=== PATIENT | female | born 1980 | race African-American/Black ===

== ENCOUNTER 2019-12-16 14:36 | Emergency (ER) | payer MEDICAID, SELFPAY ==
[2019-12-16 15:43] VITALS: BP 132/90; PULSE 87; RESP 18; TEMP 36.8; O2SAT 96
[2019-12-16] MEDS: FAMOTIDINE 20 MG/2 ML VIAL IV PUSH (18:00)
--- NOTE | 2019-12-16 18:07 | ED.URI ---
HPI - URI/Sore Throat General Chief Complaint: Upper Respiratory Infection Stated Complaint: flu like symptoms Time Seen by Provider: 12/16/19 17:26 Source: patient Mode of arrival: ambulatory Limitations: no limitations History of Present Illness HPI Narrative: Patient is a 39-year-old female who presents to emergency department for evaluation of upper respiratory symptoms that began yesterday with congestion rhinorrhea body aches has had a few loose stools and one episode of post tussive emesis patient notes some headache that is mild in nature denies any difficulty breathing or shortness of breath. Patient has tried [id number] medications with minimal improvement on arrival is resting comfortably in the room in no distress Related Data Allergies Allergy/AdvReac Type Severity Reaction Status Date / Time No Known Allergies Allergy Unverified 07/19/16 11:40 Review of Systems Review of Systems: Narrative: CONSTITUTIONAL: Positive for fever, chills EYES: Denies redness, or discharge. ENT: Positive for rhinorrhea, congestion, sore throat, denies otalgia. RESPIRATORY: Denies dyspnea. GASTROINTESTINAL: Denies abdominal pain SKIN: Denies rash or itching. MUSCULOSKELETAL: Denies back pain, joint pain, or myalgia. PMFSH Social History Social History Gender identity (if verbalized by the patient): Female Exam Narrative: Exam Narrative: GENERAL: Well-appearing, well-nourished, and in no acute distress. HEAD: Normocephalic, atraumatic. EYES: PERRLA and EOMI. ENT: Nares clear, no rhinorrhea or epistaxis. Mucous membranes moist. Oropharynx without tonsillar hypertrophy exudate or other lesions. NECK: Supple. No adenopathy or masses. CHEST: Clear to auscultation. No respiratory distress. No wheezes rales or rhonchi HEART: Regular rate and rhythm. No murmur heard. EXTREMITIES: Normal range of motion. No edema. SKIN: Warm, dry, no rash. NEURO: No focal deficits. Alert and oriented x3. Cranial nerves II through XII grossly intact PSYCH: Normal mood and affect. Course Course Emergency Course: Patient in the room in no distress aware of case findings treatment plan and diagnosis agreeing to follow-up as directed or to return if symptoms worsen or concerns Vital Signs Vital signs: Vital Signs Temperature 98.3 F 12/16/19 15:43 Pulse Rate 87 12/16/19 15:43 Respiratory Rate 18 12/16/19 15:43 Blood Pressure 132/90 12/16/19 15:43 Pulse Oximetry 96 12/16/19 15:43 Temperature 98.3 F 12/16/19 15:43 Pulse Rate 87 12/16/19 15:43 Respiratory Rate 18 12/16/19 15:43 Blood Pressure 132/90 12/16/19 15:43 Pulse Oximetry 96 12/16/19 15:43 MDM - URI/Sore Throat MDM Narrative Medical decision making narrative: Patient with likely viral syndrome in the room afebrile nontoxic-appearing no distress felt appropriate for outpatient reevaluation was hydrated and given medications in the emergency department provided with reasons to return and agrees to do so if symptoms worsen Lab Data Labs: Influenza A Screen Negative Reference Range: Negative Influenza B Screen Negative Reference Range: Negative Discharge Plan Discharge Clinical Impression: Upper respiratory infection Patient Disposition: Home, Self-Care Condition: Stable Instructions: Antibiotic Form, Viral Syndrome (ED) Additional Instructions: Follow up with your primary care provider within 5-7 days. Go to ER for shortness of breath, difficulty breathing, chest pain, fever/chills, weakness, nauseau/vomitting, etc. or any other concerns. Stay well-hydrated Take any prescribed medications as directed. Follow patient education sheets If you do not have a drug allergy to tylenol or motrin and can tolerate it then take tylenol or motrin as needed for discomfort/pain. Prescriptions: New loratadine [Claritin] 10 mg tablet
[2019-12-16 18:30] VITALS: RESP 16
--- NOTE | 2019-12-19 08:54 | PC.NURSE ---
LATE ENTRY This note is being entered to document information to the patient's record. The following information was omitted on [12/18/19]. offirmev discontinued at 1821.
== END 2019-12-16 18:30 | disposition home or self-care (01) ==
PROVIDERS: Emergency Provider Emergency Medicine
DX: J06.9 Acute upper respiratory infection, unspecified (principal)
CPT/HCPCS: 87804; 96365; 96375; 99284; J0131

== ENCOUNTER 2020-04-23 15:52 | Emergency (ER) | payer SELFPAY ==
--- NOTE | ~2020-04-23 | XR_ITS ---
EXAMINATION: XR abdomen/kub 1V DATE: 04/23/2020 18:45 INDICATION: Left flank pain. TECHNIQUE: A supine view of the abdomen on 2 radiographs was obtained. COMPARISON: CT abdomen and pelvis 04/23/2020 FINDINGS: There are no dilated loops of bowel. There is no urolithiasis. IMPRESSION: 1. No urolithiasis. Reviewed, dictated and finalized at location A. IMPRESSION: 1. No urolithiasis.
--- NOTE | ~2020-04-23 | CT_ITS ---
EXAMINATION: CT abdomen pelvis wo con DATE: 04/23/2020 18:15 INDICATION: Right abdominal pain. TECHNIQUE: Computed tomography (CT) of the abdomen and pelvis was performed without intravenous contr ast. Automated exposure control and iterative reconstruction technique were employed. The dose-length product was 1525.64 mGy-cm. COMPARISON: None. FINDINGS: The visualized portions of the lung bases are clear without pneumonia or pleural effusion. The heart size is normal. No pericardial effusion. The liver, gallbladder, spleen, pancreas, adrenal glands, and kidneys are normal. There is no urolithiasis. There is diverticulosis of the colon withou t evidence of diverticulitis. There are no dilated loops of bowel. The appendix is normal. There are no pathologically enlarged lymph nodes. There is no free intraperitoneal fluid. There are uterine fib roids measuring up to at least 5.0 cm. There is mild thoracolumbar spondylosis. IMPRESSION: 1. Uterine fibroids. Reviewed, dictated and finalized at location A. IMPRESSION: 1. Uterine fibroids.
[2020-04-23 15:53] VITALS: BP 151/103; PULSE 107; RESP 16; O2SAT 100
--- NOTE | 2020-04-23 16:37 | ED.GENADULT ---
HPI - General Adult General Chief complaint: Abdominal Pain Stated complaint: ABD/BACK PAIN Time Seen by Provider: 04/23/20 16:36 Source: patient Mode of arrival: ambulatory Limitations: no limitations History of Present Illness HPI narrative: 39-year-old female patient presents to the [facility] with complaints of low back and abdominal pain that started today after work. Patient states that she works at [employer] and has been on her feet most of the day today. Patient states she went to go and sit down in her car and states that she had a ball of pain that started in her abdomen and radiates to her back. Patient states that the pain gets worse when she is in a sitting position but is better when she stands or lays on her side. Patient denies any pain with urination. Patient states her last bowel movement was this morning. Patient denies any chest pain, shortness of breath. Patient denies any fevers. Patient denies any injury to the back that she is aware of. Related Data Allergies Allergy/AdvReac Type Severity Reaction Status Date / Time No Known Allergies Allergy Unverified 07/19/16 11:40 Review of Systems Review of Systems: Narrative: CONSTITUTIONAL: Denies fever, chills, or sweats. EYES: Denies visual changes, redness, or discharge. ENT: Denies rhinorrhea, congestion, sore throat, or otalgia. CARDIOVASCULAR: Denies chest pain, palpitations, or edema. RESPIRATORY: Denies cough or dyspnea. GASTROINTESTINAL: Positive abdominal pain, denies nausea, vomiting, or diarrhea. GENITOURINARY: Denies dysuria or hematuria. SKIN: Denies rash or itching. MUSCULOSKELETAL: Positive low back pain, denies joint pain, or myalgia. NEUROLOGIC: Denies headache, numbness, or weakness. PSYCHIATRIC: Denies anxiety or depression. PMFSH Social History Social History Gender identity (if verbalized by the patient): Female Comments At the time of my signature I agree with nursing past medical history, surgical, social, and family history. There is no relevant family history pertinent to the presenting complaint. Exam Narrative: Exam Narrative: GENERAL: Well-appearing, well-nourished, and in no acute distress. HEAD: Normocephalic, atraumatic. EYES: PERRLA and EOMI. ENT: Nares clear, no rhinorrhea or epistaxis. Mucous membranes moist. NECK: Supple. No lymphadenopathy CHEST: Clear to auscultation. No respiratory distress. HEART: Regular rate and rhythm. No murmur heard. Normal peripheral pulses. ABDOMEN: Soft, flat, nondistended. No guarding, rebound tenderness, or rigid. No pulsatilla masses. Hyperactive bowel sounds present in all four quadrants. No organomegaly. Negative Montanez?s sign. No periumbicial tenderness. No Supra public tenderness or distension. Good femoral pulses bilaterally. No hernia noted. No scars or surface trauma. Left-sided CVA tenderness on percussion. BACK: Patient is able to ambulated without assistance. Pt is lying on the stretcher in no obvouis distress. No surface trauma noted. No muscle tenderness to Palpation. No spasm or mass. No step-offs or deformity noted to the cervical, thoracic or lumbar spine to firm Palpation at the midline. Left-sided CVA tenderness to percussion. No saddle anesthesia. ROM: able to stand erect. Normal flexion, extension, Lateral bending and rotation without limitation or complaint of pain. EXTREMITIES: Normal range of motion. No edema. SKIN: Warm, dry, no rash. NEURO: No focal deficits. Alert and oriented x3. Course Reevaluation(s) Reevaluation #1: Reevaluated patient after her labs and CT had resulted. Discussed with her that her CT shows some uterine fibroids but everything else looks okay. Discussed with her that her labs look like she might be a little bit dehydrated. Discussed with patient that the uterine fibroids would contribute to the abdominal and back pain that she is experiencing. Patient states that she is on the last day of he
--- NOTE | 2020-04-23 16:44 | ECG_ITS ---
Measurements Intervals [place] Rate: 81 P: 56 [place]: 176 QRS: 39 QRSD: 90 T: 38 QT: 385 QTc: 448 Interpretive Statements SINUS RHYTHM BASELINE ARTIFACT- V1 NORMAL ECG Electronically Signed On 04-23-2020 17:33:00 CDT by Jose Manuel Mosqueda D.O.
[2020-04-23 17:02] LABS: Basophils Absolute Auto 0.1 K/mm3 (0.0-0.1); Eosinophils Absolute Auto 0.1 K/mm3 (0-0.3); Eosinophils Percent Auto 1.1 % (0-4.4); Hematocrit 33.6 % (37.0-47.0); Hemoglobin 10.4 g/dL (12.0-15.0); Immature Granulocyte Absolute 0.02 K/mm3 (0.00-0.031); Immature Granulocyte Percent A 0.3 % (0-0.5); Lymphocytes Absolute Auto 2.51 K/mm3 (0.9-3.2); Lymphocytes Percent Auto 40.7 % (18.3-44.2); Mean Corpuscular Hemoglobin 24.3 pg (26-34); Mean Corpuscular Volume 78.5 fl (80-100); Mean Platelet Volume 9.2 fl (7.4-10.4); Monocytes Absolute Auto 0.5 K/mm3 (0.1-0.6); Monocytes Percent Auto 8.3 % (2.6-8.5); Neutrophils Percent Auto 48.6 % (45.5-73.1); Platelet Count Result 406 k/mm3 (150-375); Red Blood Count 4.28 M/mm3 (4.2-5.4); Red Cell Distribution Width 18.3 % (11.5-14.5); White Blood Count 6.2 K/mm3 (4.5-10.0)
[2020-04-23] MEDS: KETOROLAC 30 MG/ML VIAL (*BKC) IV PUSH (17:09)
[2020-04-23 17:14] LABS: Alanine Aminotransferase 15 U/L (4-35); Albumin Level 4.3 g/dL (3.5-5.1); Alkaline Phosphatase 88 U/L (38-126); Aspartate Amino Transferase 26 U/L (14-36); Bilirubin,Total < 0.1 mg/dL (0.2-1.3); Blood Urea Nitrogen 10 mg/dL (7-17); Calcium 8.8 mg/dL (8.4-10.2); Carbon Dioxide 27 mmol/L (22-30); Chloride 105 mmol/L (98-107); Estimated CRCL calculation 128 ml/min; Estimated Glomerular Filt Rate > 60; Glucose 103 mg/dL (65-105); Lipase 116 U/L (23-300); Potassium 3.8 mmol/L (3.4-5.0); Sodium 136 mmol/L (137-145)
[2020-04-23 17:25] LABS: Troponin I < 0.012 ng/mL (0.000-0.034)
[2020-04-23 18:15] LABS: Add Urine Microscopic? YES; Appearance Urine Clear (Clear); Bilirubin Urine Negative (Negative); Blood Urine 3+ (Negative); Color Urine Yellow (Yellow); Glucose Urine UA Negative (Negative); Ketones Urine Negative (Negative); Leukocyte Esterase Ur Negative LEU/UL (Negative); Mucus Urine Few /lpf; Nitrate Urine Negative (Negative); Protein Urine 1+ mg/dL (Negative); RBC Urine >75 /hpf (0-2); Specific Grav Ur 1.028 (1.001-1.035); Squamous Epithelial Cell Urine Occasional /hpf (Few); WBC Urine 0-3 /hpf
[2020-04-23] MEDS: SODIUM CHLORIDE 0.9% IV 1,000 ML 999 ML IV CONT (18:24)
[2020-04-23 19:51] VITALS: BP 148/96; PULSE 92; RESP 16; TEMP 36.6; O2SAT 98
== END 2020-04-23 19:52 | disposition home or self-care (01) ==
PROVIDERS: Emergency Provider Nurse Practitioner Family
DX: D25.9 Leiomyoma of uterus, unspecified (principal); R03.0 Elevated blood-pressure reading, without diagnosis of hypertension
CPT/HCPCS: 36415; 74018; 74176; 80053; 81001; 81025; 82248; 83690; 84484; 85025; 93005; 96361; 96374; 99284; J1885; J7030

== ENCOUNTER 2022-04-01 17:36 | Emergency (ER) | payer BC, SELFPAY ==
--- NOTE | 2022-04-01 17:37 | ED.EAR ---
HPI - Ear Problem General Chief complaint: Ear Stated complaint: Ear bleed Time Seen by Provider: 04/01/22 17:37 Source: patient Mode of arrival: ambulatory Limitations: no limitations History of Present Illness HPI Narrative: Ms. Munoz is a 41-year-old female patient presenting to the clinic today with complaints of ear bleeding. She reports that she was using a Q-tip yesterday and went too far into her ear and cause some bleeding. She reports there is no pain but she has decreased hearing in that ear. Related Data Home Medications Medication Instructions Recorded Confirmed ferrous sulfate 325 mg PO DAILY 04/01/22 04/01/22 metformin 500 mg PO DAILY 04/01/22 04/01/22 simvastatin 10 mg PO DAILY 04/01/22 04/01/22 Allergies Allergy/AdvReac Type Severity Reaction Status Date / Time No Known Allergies Allergy Verified 04/01/22 17:50 Review of Systems Review of Systems: Pertinent positives per HPI. Patient denies any fever, chills, rash, headache, visual changes, dizziness, cough, runny nose, sore throat, shortness of breath, chest pain, palpitations, nausea, vomiting, diarrhea, constipation, abdominal pain, or any urinary issues. [facility] Social History Social History Gender identity (if verbalized by the patient): Female Comments At the time of my signature, I reviewed and agree with the nursing past medical, surgical, social, and family history. There is no relevant family history pertinent to the patient complaint. Exam Narrative: General: Well-developed, morbidly obese, in no apparent distress Head: Normocephalic, atraumatic Eyes: Pupils equally round and reactive to light bilaterally, EOM intact, sclera and conjunctive clear, no discharge, lids normal Ears: Right TMs intact and clear, left TM perforated with blood against the TM and in the ear canal able to visualize a small section of the inner ear ossicles, right ear canal clear, grossly hearing normal. Nose: Nares patent, no discharge, no inflammation, no sinus tenderness. Mouth: Oropharynx without lesions or masses, good dentition, MMM. Neck: Supple, trachea midline, no enlargement of anterior or posterior cervical nodes, no thyroid masses or goiter palpable. Cardio: Regular rate and rhythm, s1 and s2 normal, no murmur appreciated. Resp: Clear to auscultation bilaterally anteriorly and posteriorly, no rhonchi, rales, wheezing or rubs Course Course Emergency Course: Portions of this record may have been created with voice recognition software. Level of Care: Express Care Visit Vital Signs Vital signs: Vital Signs Temperature 36.7 C 04/01/22 17:44 Pulse Rate 94 04/01/22 17:44 Respiratory Rate 16 04/01/22 17:44 Blood Pressure 135/88 04/01/22 17:44 Pulse Oximetry 99 04/01/22 17:44 Temperature 36.7 C 04/01/22 17:44 Pulse Rate 94 04/01/22 17:44 Respiratory Rate 16 04/01/22 17:44 Blood Pressure 135/88 04/01/22 17:44 Pulse Oximetry 99 04/01/22 17:44 Vital signs reviewed Medical Decision Making MDM Narrative Medical decision making narrative: At the time of visit patient is resting comfortably on the exam table. Patient denies any pain but is having some bleeding coming from the left ear. Upon exam it appears that she has perforated her left eardrum. She has decreased in hearing in the left ear. I will go ahead and give her a ears nose and throat referral and advised her not to stick anything into her ear. Supportive measures were discussed with the patient she voiced understanding of discharge instructions and agrees with the treatment plan. Vital Signs Vital Signs: Vital Signs Temperature 36.7 C 04/01/22 17:44 Pulse Rate 94 04/01/22 17:44 Respiratory Rate 16 04/01/22 17:44 Blood Pressure 135/88 04/01/22 17:44 Pulse Oximetry 99 04/01/22 17:44 Temperature 36.7 C 04/01/22 17:44 Pulse Rate 94 04/01/22 17:44 Respiratory Rat
[2022-04-01 17:44] VITALS: BP 135/88; PULSE 94; RESP 16; TEMP 36.7; O2SAT 99
== END 2022-04-01 18:17 | disposition home or self-care (01) ==
LOC: EXPBETH 17:42
PROVIDERS: Emergency Provider Nurse Practitioner Family
DX: H72.92 Unspecified perforation of tympanic membrane, left ear (principal); E78.00 Pure hypercholesterolemia, unspecified; E11.9 Type 2 diabetes mellitus without complications; D64.9 Anemia, unspecified
CPT/HCPCS: 99211; G0463

== ENCOUNTER 2023-07-01 14:30 | Emergency (ER) | payer BC, SELFPAY ==
[2023-07-01 14:36] VITALS: BP 131/85; PULSE 86; RESP 20; TEMP 36.8; O2SAT 100
--- NOTE | 2023-07-01 15:06 | ED.URI ---
HPI - URI/Sore Throat General Chief Complaint: Upper Respiratory Infection Stated Complaint: Cough, Congestion, Body Ache Source: patient and RN notes reviewed History of Present Illness HPI Narrative: 43-year-old female presents to urgent care coughing and congestion x9 days. Patient states her cough is worse at nighttime. Patient reports painful, lower, anterior, ribs with deep inhalation and coughing. Patient states insert for take a deep because it hurts to do so. Denies any fevers, chills sore throat, ear pain vomiting, or diarrhea. Denies any chest pain. Patient has taking Sudafed, DayQuil, and drinking tea with honey with minimal relief. Related Data Allergies Allergy/AdvReac Type Severity Reaction Status Date / Time No Known Allergies Allergy Verified 07/01/23 14:55 Review of Systems Review of Systems: Pertinent positives and pertinent negatives per HPI. [facility] Social History Social History Gender identity (if verbalized by the patient): Female Comments At the time of my signature, I reviewed and agree with the nursing past medical, surgical, social, and family history. There is no relevant family history pertinent to the patient complaint. Exam Narrative: GENERAL: This is a well-nourished, well-developed patient, in no apparent distress. HEAD: normocephalic, atraumatic. EYES: Sclera clear/white. Vision is grossly intact. EARS: External ears normal, auditory canals clear and without drainage. Hearing grossly intact. NOSE: Congestion, rhinorrhea, edematous and erythremic nares. NECK: Neck supple, non-tender without lymphadenopathy, masses or thyromegaly. CARDIOVASCULAR: Regular rate and rhythm without murmurs, gallops, or rubs. RESPIRATORY: Clear to auscultation. Breath sounds equal bilaterally. No wheezes, rales, or rhonchi. Pt coughing frequently in exam room with deep inhalation. SKIN: warm, intact with no suspicious lesions or rash, good texture and turgor. NEURO: awake, alert, and oriented to person, place and time. There were no obvious focal neurologic abnormalities. Course Course Level of Care: Express Care Visit Vital Signs Vital signs: Vital Signs Temperature 98.2 F 07/01/23 14:36 Pulse Rate 86 07/01/23 14:36 Respiratory Rate 20 08/19/23 14:36 Blood Pressure 131/85 07/01/23 14:36 Pulse Oximetry 100 07/01/23 14:36 Oxygen Delivery Room Air 07/01/23 14:36 Temperature 98.2 F 07/01/23 14:36 Pulse Rate 86 07/01/23 14:36 Respiratory Rate 20 07/01/23 14:36 Blood Pressure 131/85 07/01/23 14:36 Pulse Oximetry 100 07/01/23 14:36 Oxygen Delivery Room Air 07/01/23 14:36 reviewed. MDM - URI/Sore Throat MDM Narrative Medical decision making narrative: Go to the ER for any new or worsening symptoms. Avoid smoking/second-hand smoke. Continue to take Tylenol or Motrin for pain. Increase your Vitamin C intake. Use a humidifier or vaporizer at night. Take Medications as prescribed. Drink plenty of water. 8-10 glasses per day. Use flonase 2 times per day for 5 days then as needed Take mucinex 2 times per day and be sure to take with 8oz of water. Follow up with Primary provider if not getting better. Take steroids as directed. May use the inhaler every 4-6 hours as needed for coughing. Increase fluids at home. Avoid any and all smoke. May use a humidifier in the bedroom. Increase your Vitamin C. Follow-up with personal physician in 2-5 days. Check your blood sugar daily and if it's getting above 200 mg/dl, stop taking the steroids (prednisone). Differential Diagnosis Differential diagnosis: Likely upper respiratory infection, sinusitis and bronchitis Critical Care Time Critical Care Time Critical Care Time: No Discharge Plan Discharge Clinical Impression: Bronchitis Sinusitis Qualifiers: Sinusitis location: unspecified location Chronicity: unspecified Qualified Code(s)
== END 2023-07-01 15:16 | disposition home or self-care (01) ==
PROVIDERS: Emergency Provider Nurse Practitioner Family
DX: J40 Bronchitis, not specified as acute or chronic (principal); J32.9 Chronic sinusitis, unspecified
CPT/HCPCS: 99213; G0463

== ENCOUNTER 2024-12-25 13:54 | Emergency (ER) | payer BC, SELFPAY ==
--- OUTSIDE RECORDS SUMMARY | 2024-12-25 13:56 | XMS_ITS ---
Author Organization [facility] Address [address] [place] [address] Care Team Providers Care Computer Systems Integrator Name Role Phone Arnol Hope Primary Care Provider Allergies No Known Allergies REASON FOR VISIT 1 Month Psych F/U & Med Refill Medications Medication SIG (Take, Route, Frequency, Duration) Notes Start Date End Date Status Senna 8.6 MG 2 tablets Orally twice daily As needed constipation 01/31/2024 Active Baclofen 10 MG 1 tablet as needed Orally three times a day As needed back pain 01/31/[address] 500 MG 1 tablet as needed O rally every 12 hrs Active Iron (Ferrous Sulfate) 325 (65 Fe) MG 1 tablet Orally daily for 30 days take with water only at least one hour before eating 10/25/2023 Active Rosuvastatin Calcium 10 MG TAKE 1 TABLET BY MOUTH EVERY DAY for 90 Active Immunizations Vaccine Route Administration Date Status Comme nts Tdap IM Intramuscular 10/15/2024 Administered Social History Tobacco Use: Social History Observation Description Date Details (start date - stop date) Current Smoker NA - NA Sex Assigned At : Social History Observation Description Sex Assigned At Female Tobacco Control (Standard) Question Answer Notes Tobacco use: Current smoker Additional Findings: Tobacco user Moderate cigar ette smoker (10-19 cigs/day) Vital Signs Weight 270.8 lbs 10/15/2024 Height 66 in 10/15/2024 BMI 43.7 kg/m2 10/15/2024 Blood pressure systolic 114 mm Hg 10/15/20 24 Blood pressure diastolic 80 mm Hg 024 Heart Rate 88 /min 10/15/2024 Oximetry 98 % 10/15/2024 Encounters Encounter Location Date Provider Diagnosis [address] [place] [address] 10/15/2024 Arnol Hope Diabetes mellitus E1 1.9 ; Iron deficiency anemia D50.9 ; Hyperlipidemia E78.5 and Exposure to potential infection Z20.9 Assessments Encounter Date Diagnosis (ICD Code) Assessment Notes Treatment Notes Treatment Clinical Notes Section Notes 10/15/2024 Diabetes mellitus (ICD-10 - E11.9) 10/15/2024 Iron deficiency anemia (ICD-10 - D50.9) 10/15/2024 Hyperlipidemia (ICD-10 - E78.5) 10/15/2024 Exposure to potential infection (ICD-10 - Z20.9) Plan Of Treatment Future Test Test Name Order Date HIV Screen *HIV 1, 2 Ab, p24 Ag 10/15/20 24 Iron and TIBC* 10/15/2024 Hemoglobin A1c* 10/15/2024 CBC With Differential/Platelet* 10/15/20 24 Hepatitis C Virus Antibody w/Rflx to Riaz ntitative Real-time PCR ([id number]) 10/15/2024 Lipid Panel* 10/15/2024 CMP 14 Comprehensive Metabolic Panel* QuantiFERON-TB Gold Plus 10/15/2024 Next Appt Details Follow Up: 6 Months, Reason: A1c Progress Notes * Elizabeth MUNOZDOB:1980 (44 yo F)Acc No.[id number]:10/15/2024 Progress Notes Patient: Elizabeth WEEMS Provider: Andrei Hope :1980 A ge:44 Y S ex:Female Date:10/15/2024 Address:[address] [place] [address] [facility] Subjective: * Chief Complaints: * 1 Month Psych F/U & Med Refill * HPI: D epression Screening: PHQ-9 L ittle interest or pleasure in doing things?Not at all F eeling down, depressed, or hopeless N ot at all T rouble falling or staying asleep, or sleeping too much N ot at all F eeling tired or having little energy N ot at all P oor appetite or overeating N ot at all F eeling bad about yourself or that you are a failure, or have let yourself or your family down N ot at all T rouble concentrating on things, such as reading the newspaper or watching television N ot at all M oving or speaking so slowly that other people could have noticed; or the opposite, being so fidgety or restless that you have been moving around a lot more than usual N ot at all T houghts that you would be better off or of hurting yourself in some way N ot at all T otal Score 0 S creening: [place] Suicide Severity Rating Scale (LF) D o you want to initiate with S creener form 1 . Wish to be : Have you wished you were or wished you could go to sleep and not wake up? N o 2 . Suicidal Thoughts: Have you actually had any thoughts of killing yourself? N o 6 . Suicide Behaviour: Have you ever done anything,started to do anything, or prepared to end your life? N o I nterpretation: L ow Risk C SSRS Interpretation and Follow Up Plan: CSSRS Interpretation and Follow Up Plan. CSSRS Interpretation and Follow Up Plan C SSRS Screen documented using SF Y es M oderate or High risk requires selection of a follow up plan C SSRS No/Low: intervention not needed at this time I nterim History: FEELS GOOD. NOT TAKING TRULICITY DUE TO INS. ISSUES. NOT MONITORING SUGAR. DENIED CP OR SOB OR SWELLING DENIED MS ISSUES. 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 TAKING MEDS A LISTED (REVIEWED) AND TOLERATING WELL. WEIGHT STABLE. APPETITE GOOD. * ROS: B asic ROS: Denies W eight loss or gain. * Medical History: * Surgical History: D enies Past Surgical History * Hospitalization/Major Diagno stic Procedure: 3 natural child births * Family History: F ather: alive, Heart condition. M other: alive, Fatty liver disease. 1 brother(s) , 3 sister(s) - healthy. 3 daughter(s) - healthy. . * Social History: P rimary Social History: L iving Arrangement L iving Arrangement: I ndependent Living I s this a supportive environment? 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 Use: T obacco Control (Standard) T obacco use: C urrent smoker A dditional Findings: Tobacco user M oderate cigarette smoker (10-19 cigs/day) * Medications: T akingRosuvastatin Calcium 10 MG Tablet TAKE 1 TABLET BY MOUTH EVERY DAY Iron (Ferrous Sulfate) 325 (65 Fe) MG Tablet 1 tablet Orally daily take with water only at least one hour before eatingBaclofen 10 MG Tablet 1 tablet as needed Orally three times a day As needed back painSenna 8.6 MG Tablet 2 tablets Orally twice daily As needed constipationNaproxen DR 500 MG Tablet Delayed Release 1 tablet as needed Orally every 12 hrs Taking Rosuvastatin Calcium 10 MG Tablet TAKE 1 TABLET BY MOUTH EVERY DAY Taking Iron (Ferrous Sulfate) 325 (65 Fe) MG Tablet 1 tablet Orally daily take with water only at least one hour before eatingTaking Baclofen 10 MG Tablet 1 tablet as needed Orally three times a day As needed back painTaking Senna 8.6 MG Tablet 2 tablets Orally twice daily As needed constipationTaking Naproxen DR 500 MG Tablet Delayed Release 1 tablet as needed Orally every 12 hrs DiscontinuedTrulicity 1.5 MG/0.5ML Solution Pen-injector 0.5 mL Subcutaneous weekly DTx Lg - Miscellaneous - Miscellaneous BILATERAL WRIST SPLINTS TO WEAR WHILE SLEEPING EXTERNALLY AT NIGHT Discontinued Trulicity 1.5 MG/0.5ML Solution Pen-injector 0.5 mL Subcutaneous weekly Discontinued DTx Lg - Miscellaneous - Miscellaneous BILATERAL WRIST SPLINTS TO WEAR WHILE SLEEPING EXTERNALLY AT NIGHT * Allergies: N .K.D.A.no[Allergies Verified] Objective: * Vitals: I nitials: dt, Wt:270.8, Ht: 66, BMI:43.7, BP:114/80, HR:88, Oxygen sat %:98, LMP: 09/2024, Pain scale:0. * Examination: G eneral Examination: GENERAL APPEARANCE: w ell developed, well nourished, in no acute distress. HEAD: n ormocephalic, atraumatic. EYES: P ERRLA, sclera and conjunctiva clear. EARS External ears intact. NOSE: n julianne patent, no lesions, septum intact. ORAL CAVITY: m ucosa moist. THROAT: n o erythema, no exudate, pharynx normal. NECK/THYROID: n o JVD, no goiter. SKIN: w arm and dry, no rashes. HEART: r egular rate and rhythm, no murmurs. LUNGS: r espirations regular and easy, clear to auscultation bilaterally. ABDOMEN: b owel sounds present, soft, nontender, nondistended, no masses palpable, no organomegaly . MUSCULOSKELETAL: n o joint deformity, swelling, redness, or warmth , LEILA upper and lower extremities. EXTREMITIES: n o clubbing, cyanosis, or edema. NEUROLOGIC: c ranial nerves 2-12 grossly intact. Assessment: * Assessment: 1. I jael deficiency anemia - D50.9 (Primary) 2 . D iabetes mellitus - E11.9? 3. H yperlipidemia - E78.5 4 . E xposure to potential infection - Z20.9 Plan: * Treatment: 2. D iabetes mellitus L AB: Hemoglobin A1c* (Ordered for 10/15/2024) (Collection Date & Time - 10/15/2024) 3. H yperlipidemia L AB: CMP 14 Comprehensive Metabolic Panel* (Ordered for 10/15/2024) (Collection Date & Time - 10/15/2024) L AB: Lipid Panel* (Ordered for 10/15/2024) (Collection Date & Time - 10/15/2024) 4. E xposure to potential infection L AB: QuantiFERON-TB Gold Plus (Ordered for 10/15/2024) (Collection Date & Time - 10/15/2024) L AB: Hepatitis C Virus Antibody w/Rflx to Quantitative Real-time PCR (Ordered for 10/15/2024) (Collection Date & Time - 10/15/2024) L AB: HIV Screen *HIV 1, 2 Ab, p24 Ag (Ordered for 10/15/2024) (Collection Date & Time - 10/15/2024) * Recommended Wellness and Pre vention Guidelines: * S tatus A lert L ast Done N ext Due A ction Taken N ONCOMPLIANT A 1C testing 1 12/25/2022 1 12/16/2023 - N ONCOMPLIANT A lcohol use screening - 1 12/16/2023 - N ONCOMPLIANT A llergy List Verification - 1 12/16/2023 - N ONCOMPLIANT A ntithrombic tx (IVD or DM) - 1 12/16/2023 - N ONCOMPLIANT B P control in DM (130/80) 0 01/31/2024 1 12/16/2023 - N ONCOMPLIANT B reast cancer screening - 1 12/16/2023 - N ONCOMPLIANT C ervical cancer screening - 1 12/16/2023 - N ONCOMPLIANT I nfluenza vaccine (high risk) - 1 12/16/2023 - N ONCOMPLIANT L DL control (high risk) 1 12/25/2022 1 12/16/2023 - N ONCOMPLIANT P neumococcal vaccine - 1 12/16/2023 - N ONCOMPLIANT S moking cessation intervention - 1 12/16/2023 - * Immunizations: Tdap : 0.5 mL (Dose No:1) (Route: Intramuscular) given by Jose Miguel Gilbert Technical Support Intern on Left Deltoid (Exposure to potential infection) * Procedure Codes: 3 008F BODY MASS INDEX [id number] MEDICAL NUTRITION, INDIV, [id number] BEHAV CHNG SMOKING 3-10 [id number] TDAP VACCINE >7 [id number] IMMUNIZATION ADMIN * Preventive Medicine: Counseling: C are goal follow-up plan: BMI management provided Y es Above Normal BMI Follow-up L ifestyle education regarding diet S MOKING: Patient counselled on the dangers of tobacco use and urged to quit. . * Follow Up: 6 Months (Reason: A1c) * * GENERATOR SET UP OPERATOR Sign off status: Completed true * Provider: Andrei Hope Date: 12/16/2023 Generated for Nini rainey/Patrick/Philippe on: 0 12/25/2024 01:56 PM GEAR GENERATOR SET UP OPERATOR History and Physical Notes * HPI (History of Present Illness) Category Sub-Category Detail Notes Category Not es Depression Screening PHQ-9 Little inte rest or pleasure in doing things: Not at all Feeling down, depressed, or hopeless: No t at all Trouble falling or staying asleep, or sl eeping too much: Not at all Feeling tired or having little energy: N ot at all Poor appetite or overeating: Not at all Feeling bad about yourself o r that you are a failure, or have let yourself or your family down: Not at all Trouble concentrating on thi ngs, such as reading the newspaper or watching television: Not at all Moving or speaking so slowly that other people could have noticed; or the opposite, being so fidgety or restless that you have been moving around a lot more than usual: Not at all Thoughts that you would be b teresa off or of hurting yourself in some way: Not at all Total Score: 0 Screening [place] Suicide Sev erity Rating Scale (LF) Do you want to initiate with: Screener form 1. Wish to be : Have you wished you were or wished you could go to sleep and not wake up?: No 2. Suicidal Thoughts: Have you actually had any thoughts of killing yourself?: No 6. Suicide Behavior Question: Have you ever done anything,started to do anything, or prepared to end your life?: No Interpretation:: Low Risk Do Not Use CSSRS Interpretation and Follow Up Plan CSSRS Interpretation and Follow Up Plan CSSRS Screen documented using SF: Yes Moderate or High risk requir es selection of a follow up plan: CSSRS No/Low: intervention not needed at this time Examination Category Sub-Category Detail Notes Category Not es General Examination GENERAL APPEARANCE: well dev eloped, well nourished, in no acute distress HEAD: normocephalic, atrau matic EYES: PERRLA, sclera and c onjunctiva clear EARS External ears intact NOSE: nares patent, no les ions, septum intact THROAT: no erythema, no exud ate, pharynx normal NECK/THYROID: no JVD, no goiter HEART: regular rate and rhy thm, no murmurs LUNGS: respirations regular and easy, clear to auscultation bilaterally ABDOMEN: bowel sounds present , soft, nontender, nondistended, no masses palpable, no organomegaly NEUROLOGIC: cranial nerves 2-12 grossly intact SKIN: warm and dry, no chuy hes EXTREMITIES: no clubbing, cyanosi s, or edema MUSCULOSKELETAL: no joint deformity, swelling, redness, or warmth , LEILA upper and lower extremities ORAL CAVITY: mucosa moist
--- OUTSIDE RECORDS SUMMARY | 2024-12-25 13:56 | XMS_ITS | Patient Health Record ---
Author Organization [facility] Address [address] [place] [address] Care Team Providers Care Construction Skills Teacher Name Role Phone Arnol Hope Primary Care Provider Allergies No Known Allergies Results Component Value Reference Range Notes HIV Screen *HIV 1, 2 Ab, p24 Ag (Not yet reviewed by provider) Interpretation: Performing Lab:[facility], [address] [facility], Phone - [phone], Director - [facility] Notes/Report: HIV Ab/p24 Ag Screen Non Reactive Non Reactive HIV-1/HIV-2 antibodies and HIV-1 p24 antigen were NOT detected. There is no laboratory evidence of HIV infection. HIV Negative Hepatitis C Virus Antibody w /Rflx to Quantitative Real-time PCR ([id number]) (Not yet reviewed by provider) Interpretation: Performing Lab:[facility] [facility], Phone - [phone], Director - [facility] Notes/Report: HCV Ab Non Reactive Non Reactive Interpretation: Not infected with HCV unless early or acute infection is suspected (which may be delayed in an immunocompromised individual), or other evidence exists to indicate HCV infection. QuantiFERON-TB Gold Plus (No t yet reviewed by provider) Interpretation: Performing Lab:[address] [facility], Phone - [phone], Director - [facility] Notes/Report: QuantiFERON Incubation Incubation performed. QuantiFERON-TB Gold Plus Negative Negative No response to M tuberculosis antigens detected. Infection with M tuberculosis is unlikely, but high risk individuals should be considered for additional testing (ATS/IDSA/CDC Clinical Practice Guidelines, 2017). The reference range is an Antigen minus Nil result of <0.35 IU/mL. Chemiluminescence immunoassay methodology QuantiFERON Criteria QuantiFERON-TB Gold Plus is a qualitative indirect test for M tuberculosis infection (including disease) and is intended for use in conjunction with risk assessment, radiography, and other medical and diagnostic evaluations. The QuantiFERON-TB Gold Plus result is determined by subtracting the Nil value from either TB antigen (Ag) value. The Mitogen tube serves as a control for the test. QuantiFERON TB1 Ag Value 0.05 QuantiFERON TB2 Ag Value 0.04 QuantiFERON Nil Value 0.05 QuantiFERON Mitogen Value >10.00 CBC With Differential/Platel et* (Not yet reviewed by provider) Interpretation: Performing Lab:[facility], [address] [facility], Phone - [phone], Director - [facility] Notes/Report: WBC 5.9 3.4-10.8 x10E3/uL RBC 4.48 3.77-5.28 x10E6/uL Hemoglobin 11.0 11.1-15.9 g/dL Hematocrit 35.6 34.0-46.6 % MCV 80 79-97 fL MCH 24.6 26.6-33.0 pg MCHC 30.9 31.5-35.7 g/dL RDW 17.4 11.7-15.4 % Platelets 410 150-450 x10E3/uL Neutrophils 47 Not Estab. % Lymphs 37 Not Estab. % Monocytes 12 Not Estab. % Eos 3 Not Estab. % Basos 1 Not Estab. % Neutrophils (Absolute) 2.8 1.4-7.0 x10E3/uL Lymphs (Absolute) 2.2 0.7-3.1 x10E3/uL Monocytes(Absolute) 0.7 0.1-0.9 x10E3/uL Eos (Absolute) 0.2 0.0-0.4 x10E3/uL Baso (Absolute) 0.1 0.0-0.2 x10E3/uL Immature Granulocytes 0 Not Estab. % Immature Grans (Abs) 0.0 0.0-0.1 x10E3/uL Iron and TIBC* (Not yet revi ewed by provider) Interpretation: Performing Lab:[facility], [address] [place] [address], Phone - [phone], Director - [facility] Notes/Report: Iron Bind.Cap.(TIBC) 456 250-450 ug/dL UIBC 403 131-425 ug/dL Iron 53 27-159 ug/dL Iron Saturation 12 15-55 % Lipid Panel* (Not yet review ed by provider) Interpretation: Performing Lab:[facility], Phone - [phone], Director - [facility] Notes/Report: Cholesterol, Total 217 100-199 mg/dL Triglycerides 78 0-149 mg/dL HDL Cholesterol 42 >39 mg/dL VLDL Cholesterol Gabriel 14 5-40 mg/dL LDL Chol Calc (NIH) 161 0-99 mg/dL CMP 14 Comprehensive Metabol ic Panel* (Not yet reviewed by provider) Interpretation: Performing Lab:[facility], [address] [place] [address], Phone - [phone], Director - [facility] Notes/Report: Glucose 79 70-99 mg/dL BUN 6 6-24 mg/dL Creatinine 0.67 0.57-1.00 mg/dL eGFR 111 >59 mL/min/1.73 BUN/Creatinine Ratio 9 9-23 Sodium 138 134-144 mmol/L Potassium 4.8 3.5-5.2 mmol/L Chloride 103 96-106 mmol/L Carbon Dioxide, Total 22 20-29 mmol/L Calcium 8.8 8.7-10.2 mg/dL Protein, Total 6.9 6.0-8.5 g/dL Albumin 3.9 3.9-4.9 g/dL Globulin, Total 3.0 1.5-4.5 g/dL Bilirubin, Total 0.3 0.0-1.2 mg/dL Alkaline Phosphatase 87 44-121 IU/L AST (SGOT) 12 0-40 IU/L ALT (SGPT) 9 0-32 IU/L Hemoglobin A1c* (Not yet rev iewed by provider) Interpretation: Performing Lab:[address], Phone - [phone], Director - [facility] Notes/Report: Hemoglobin A1c 6.8 4.8-5.6 % . Prediabetes: 5.7 - 6.4 Diabetes: >6.4 Glycemic control for adults with diabetes: <7.0 Reason For Referral No Information Medications Medication SIG (Take, Route, Frequency, Duration) Notes Start Date End Date Status Iron (Ferrous Sulfate) 325 (65 Fe) MG 1 tablet Orally daily for 30 days take with water only at least one hour before eating 10/25/2023 Active Rosuvastatin Calcium 10 MG TAKE 1 TABLET BY MOUTH EVERY DAY for 90 Active Senna 8.6 MG 2 tablets Orally twice daily As needed constipation 01/31/2024 Active Baclofen 10 MG 1 tablet as needed Orally three times a day As needed back pain 01/31/[address] 500 MG 1 tablet as needed O rally every 12 hrs Active Immunizations Vaccine Route Administration Date Status Comme nts Tdap IM Intramuscular 10/15/2024 Administered Social History Tobacco Use: Social History Observation Description Date Details (start date - stop date) Current Smoker NA - NA Sex Assigned At : Social History Observation Description Sex Assigned At Female Dont use, Tobacco Use/Smoking Question Answer Notes Are you a current smoker How often do you smoke cigarettes? every day How many cigarettes a day do you smoke? 6-10 Tobacco Control (Standard) Question Answer Notes Tobacco use: Current smoker Additional Findings: Tobacco user Moderate cigar ette smoker (10-19 cigs/day) Problems Problem Type SNOMED Code ICD Code Onset Dates Problem Status W/U Status Risk Notes Problem Hyperlipidemia (48557884) Hyperlipidemia (E78.5) 10/24/20 Active confirmed Problem Iron deficiency anemia (64646009) Iron deficiency anemia (D50.9) 10/24/20 Active confirmed Problem Constipation (44580984) Constipation (K59.00) Active confirmed Problem Diabetes mellitus (38444191) Diabetes mellitus (E11.9) 10/24/20 Active confirmed Problem Menorrhagia (777294115) Menorrhagia (N92.0) Active confirmed Problem Carpal tunnel syndrome (97134877) Carpal tunnel syndrome on both sides (G56.03) 10/24/20 Active confirmed Vital Signs Heart Rate 88 /min 10/15/2024 Respiratory Rate 16 /min 01/31/2024 Blood pressure diastolic 80 mm Hg 10/15/2024 Oximetry 98 % 10/15/2024 Height 66 in 10/15/2024 Blood pressure systolic 114 mm Hg 10/15/2024 Weight 270.8 lbs 10/15/2024 BMI 43.7 kg/m2 10/15/2024 Encounters Encounter Location Date Provider Diagnosis [address] [address] 01/11/2024 Arnol Hope Diabetes mellitus E1 1.[address] [address] 02/12/2024 Arnol Hope [address] [address] 02/15/2024 Arnol Hope [address] [address] 01/31/2024 Arnol Hope Dorsalgia of lumbar region M54.50 ; Sciatica associated with disorder of lumbosacral spine M53.87 ; Constipation K59.00 and Nutritional counseling Z71.[address] [address] 10/15/2024 Arnol Hope Diabetes mellitus E1 1.9 ; Iron deficiency anemia D50.9 ; Hyperlipidemia E78.5 and Exposure to potential infection Z20.9 Assessments Encounter Date Diagnosis (ICD Code) Assessment Notes Treatment Notes Treatment Clinical Notes Section Notes 01/11/2024 Diabetes mellitus (ICD-10 - E11.9) 01/31/2024 Sciatica associated with disorder of lumbosacral spine (ICD-10 - M53.87) 01/31/2024 Dorsalgia of lumbar region (ICD-10 - M54.50) rest, analgesics, ADL's as tolerated, off work until 02/14/24. 10/15/2024 Iron deficiency anemia (ICD-10 - D50.9) 10/15/2024 Diabetes mellitus (ICD-10 - E11.9) 10/15/2024 Hyperlipidemia (ICD-10 - E78.5) 01/31/2024 Constipation (ICD-10 - K59.00) 01/31/2024 Nutritional counseling (ICD-10 - Z71.3) 10/15/2024 Exposure to potential infection (ICD-10 - Z20.9) Plan Of Treatment Future Test Test Name Order Date HIV Screen *HIV 1, 2 Ab, p24 Ag 12/03/20 24 Iron and TIBC* 10/15/2024 Hemoglobin A1c* 10/15/2024 CBC With Differential/Platelet* 10/15/20 24 Hepatitis C Virus Antibody w/Rflx to Riaz ntitative Real-time PCR ([id number]) 10/15/2024 Lipid Panel* 10/15/2024 CMP 14 Comprehensive Metabolic Panel* QuantiFERON-TB Gold Plus 10/15/2024 Insurance Providers Payer Name Payer Address Payer Phone Subscriber Number Group Number Insured Name Patient Relationship to Insured Coverage Start Date Coverage End Date [address] [place] [address] [id number] Elizabeth Munoz Self - patient is the insured 3 Medical (General) History Surgical History Surgery Date(Month/Year) Hospitalization History Reason Date(Month/Year) 3 natural child births
--- OUTSIDE RECORDS SUMMARY | 2024-12-25 13:57 | XMS_ITS ---
Author Organization Counts include 234 beds at the [facility] Address [address] [place] [address] Care Team Providers Care Tablet Coater Name Role Phone Arnol Hope Primary Care Provider REASON FOR VISIT Other Social History Sex Assigned At : Social History Observation Description Sex Assigned At Female Encounters Encounter Location Date Provider Diagnosis [address] [place] [address] 02/15/2024 Arnol Hope Plan Of Treatment No Information Progress Notes * SAI ElizabethDOB:1980 (43 yo F)Acc No.[id number]:02/15/2024 Patient: Ted SPANN Johnson :1980 A ge:43 Y S ex:Female Address:[address] [place] [address] * true * Date: Generated for Printi ng/Falalag/eTransmitting on: 0 12/25/2024 01:56 PM HOME COMPANION
--- OUTSIDE RECORDS SUMMARY | 2024-12-25 13:57 | XMS_ITS ---
Author Organization [facility] Address [address] [place] [address] Care Team Providers Care Barkeep Name Role Phone Arnol Hope Primary Care Provider REASON FOR VISIT Other Social History Sex Assigned At : Social History Observation Description Sex Assigned At Female Encounters Encounter Location Date Provider Diagnosis [address] [place] [address] 02/12/2024 Arnol Hope Plan Of Treatment No Information Progress Notes * SAI ElizabethDOB:1980 (43 yo F)Acc No.[id number]:02/12/2024 Patient: Ted SPANN Johnson :1980 A ge:43 Y S ex:Female Address:[address] [place] [address] * true * Date: Generated for Printi ng/Falalag/eTransmitting on: 0 12/25/2024 01:56 PM TRANSPORT MANAGER
[2024-12-25 13:59] VITALS: BP 132/111; PULSE 108; RESP 18; TEMP 37; O2SAT 100
--- NOTE | 2024-12-25 14:09 | ED_ITS ---
HPI - URI/Sore Throat General Chief Complaint: Upper Respiratory Infection Stated Complaint: Headache/Congestion/Body Aches Source: patient, RN notes reviewed and old records reviewed Mode of arrival: ambulatory Limitations: no limitations History of Present Illness HPI Narrative: 44 year old female who presents to [facility] care with complaints of headache, cough with congestion, body aches, sinus drainage which started on Monday. Patient reports that cough is frequent and is loose at times, makes her chest feel tight when she coughs, denies any shortness of breath. Patient states that she has been taking Theraflu, NyQuil and using tea with honey for her symptoms. Patient reports that she has had some chills but no known fevers. MD elicited complaint: cough, rhinorrhea, nasal congestion and other (headache,body aches) Onset (ago): day(s) (4) Severity: moderate Description of mucous: clear Able to tolerate fluids by mouth: Yes Treatments prior to arrival: other (Theraflu, tea with honey, and NyQuil ) Related Data Allergies Allergy/AdvReac Type Severity Reaction Status Date / Time No Known Allergies Allergy Verified 12/25/24 14:09 Review of Systems Review of Systems: CONSTITUTIONAL: reports malaise, chills, sweats, no known fever. EYES: Denies visual changes, redness, or discharge. ENT: Reports rhinorrhea, congestion, sinus pain, no otalgia and scratchy sore throat. CARDIOVASCULAR: Denies chest pain, palpitations, or edema. RESPIRATORY: Reports loose cough at times.? Denies dyspnea. GASTROINTESTINAL: Denies abdominal pain, nausea, vomiting, diarrhea SKIN: Denies rash or itching. MUSCULOSKELETAL: reports myalgia. NEUROLOGIC: Reports headache. All systems reviewed & are unremarkable except as noted in HPI and below [facility] Past Medical History Medical History Ear drum perforation Bronchitis Ear infection Social History Social History Smoking status: Current every day smoker Tobacco type: cigarettes Alcohol intake: current Alcohol use details: social Substance use type: does not use Living arrangements: with family Gender identity (if verbalized by the patient): Female Comments At time of signature, agree with nursing past medical, surgical, social and family history. There is no relevant family history pertinent to the presenting complaint Exam Narrative: GENERAL: Well-appearing, well-nourished, and in no acute distress. HEAD: Normocephalic EYES: PERRLA, conjunctivae clear ENT: Nares clear, turbinates edematous and erythematous, clear discharge, sinus pressure headache,. Mucous membranes moist Right TM red, Left. TM pearly cordero with dull light reflex bilaterally; no tragal tenderness. Oropharynx jose r thematous without lesions. Tonsils red not enlarged and without exudate, no drooling, no hoarseness, no trismus, uvula midline.post nasal drainage. NECK: Supple. No lymphadenopathy CHEST: Clear to auscultation, breath sounds equal. No wheezing, rhonchi, rales, or stridor. No respiratory distress, speaks in full sentences.loose cough, SAO2 100% on room air HEART: Regular rate and rhythm. No murmur heard. SKIN: Warm, dry, no rash. NEURO: Alert and oriented x3. PSYCH: Normal mood and affect Course Course Emergency Course: Patient is aware of diagnosis, understands and agrees to treatment plan.? Anticipatory guidance given.? Patient agrees to follow-up as directed and is aware of reasons to seek care at the emergency department. Portions of this record may have been created with voice recognition software Level of Care: Express Care Visit Vital Signs Vital signs: Vital Signs Temperature 37.0 C 12/25/24 13:59 Pulse Rate 108 H 12/25/24 13:59 Respiratory Rate 18 12/25/24 13:59 Blood Pressure 132/111 H 12/25/24 13:59 Pulse Oximetry 100 12/25/24 13:59 Oxygen Delivery Room Air 12/25/24 13:59 Temperature 37.0 C 12/25/24 13:59 Pulse Rate 108 H 12/25/24 13:59 Respiratory Rate 18 12/25/24 13:59 Blood Pressure 132/111 H 12/25/24 13:59 Pulse Oximetry 100 12/25/24 13:59 Oxygen Delivery Room Air 12/25/24 13:59 Reviewed MDM - URI/Sore Throat MDM Narrative Medical decision making narrative: Differential diagnosis considered: Dietrich virus, strep pharyngitis, allergic rhinitis, upper respiratory tract infection, sinusitis, rhinosinusitis, nasopharyngitis. viral pharyngitis, otitis media, otitis externa, pneumonia, bronchitis, viral cough syndrome, viral syndrome, and influenza.? Exam findings show no acute concerns or changes; patient is non-toxic appearing and is in no distress.? Patient is appropriate for outpatient treatment and follow-up. Differential Diagnosis Differential diagnosis: Likely upper respiratory infection, otitis media, sinusitis, viral infection, influenza, pharyngitis and other (strep pharyngitis, COVID) Medical Records Attestation: I reviewed the patient's medical records. Lab Data Attestation: I reviewed the patient's lab results. Lab results narrative: Influenza A negative, Influenza B negative, COVID antigen negative, strep screen negative, strep culture sent Labs: Lab Results 12/25/24 Range/Units 14:23 POC Influenza A Ag Negative (Negative) POC Influenza B Ag Negative (Negative) POC SARS CoV-2 Ag Negative (Negative) POC Grp A Strep Screen Negative (Negative) reviewed Critical Care Time Critical Care Time Critical Care Time: No Discharge Plan Discharge Clinical Impression: URI with cough and congestion Otitis media, right Qualifiers: Otitis media type: serous Chronicity: acute Recurrence: non-recurrent Qualified Code(s): H65.01 - Acute serous otitis media, right ear Patient Disposition: Home, Self-Care Condition: Stable Instructions: Antibiotic Form, Acute Cough (ED) Additional Instructions: Increase fluids especially juices and water [id number] cough and cold medicine of your choice for your symptoms Zyrtec Claritin or Hortencia daily Coricidin brand decongestant Tylenol or ibuprofen for any fever pain Steroids as directed--take with food heat to the face 20-30 minutes 4-6 times a day for pain Salt water gargles, throat lozenges or throat sprays as desired Antibiotic as directed--finished the medication If your symptoms persist, change or worsen significantly before you can contact your personal physician then please, without delay, go to the emergency department for further evaluation. Follow-up with PCP in 7-10 days or sooner if needed Follow up with PCP soon in regards to your blood pressure which is elevated above threshold for referral. Blood pressure above 120/80 may indicate pre- hypertension. Patient Language: Luxembourgish Prescriptions: New amoxicillin-pot clavulanate 875-125 mg tablet 1 tablet PO Q12H Qty: 20 0RF prednisone 20 mg tablet 20 mg PO BID Qty: 10 0RF No Action prednisone 20 mg tablet 40 mg PO DAILY 5 Days Qty: 10 0RF fluticasone propionate [24 Hour Allergy Relief] 50 mcg/actuation spray,suspension 1 spray intranasal BID Qty: 16 0RF Rx Instructions: administer into each nostril amoxicillin-pot clavulanate 875-125 mg tablet 1 tablet PO Q12H 10 Days Qty: 20 0RF Follow-up/Referrals: Arnol Hope MD [Primary Care Provider] - Time of Disposition: 14:56 Quality [place] Coma Scale Eyes: Open Verbal: Oriented and Alert Motor: Follows Commands Breann Coma Total Score: 15
[2024-12-25 14:26] LABS: EDCOVIDSCREEN Negative (Negative); EDINFLUASCREEN Negative (Negative); EDINFLUBSCREEN Negative (Negative); EDSTREPNEGPOS1 Negative (Negative)
== END 2024-12-25 15:00 | disposition home or self-care (01) ==
PROVIDERS: Emergency Provider Registered Nurse; PCP Internal Medicine
DX: J06.9 Acute upper respiratory infection, unspecified (principal); H65.01 Acute serous otitis media, right ear; Z20.822 Contact with and (suspected) exposure to COVID-19; F17.210 Nicotine dependence, cigarettes, uncomplicated
CPT/HCPCS: 87081; 87426; 87804; 87880; 99213; G0463

== ENCOUNTER 2025-10-12 08:01 | Emergency (ER) | payer SELFPAY ==
--- OUTSIDE RECORDS SUMMARY | 2025-01-14 03:40 | XMS_ITS ---
Author Organization [facility] Address [address] [place] [address] Care Team Providers Care Locomotive Pipe Fitter Name Role Phone Arnol Hope Primary Care Provider REASON FOR VISIT f/u Social History Sex Assigned At : Social History Observation Description Sex Assigned At Female Encounters Encounter Location Date Provider Diagnosis [address] [place] [address] 01/14/2025 Arnol Hope Plan Of Treatment No Information Progress Notes * Elizabeth MUNOZDOB:1980 (45 yo F)Acc No.[id number]:01/14/2025 UNLOCKED PROGRESS NOTE Progress Notes Patient: Elizabeth WEEMS Provider: Andrei Hope :1980 A ge:44 Y S ex:Female Date:01/14/2025 Address:[address] [place], [place]-[address] Structured Data:Is there a n michell you would prefer we call you? (Nombre que prefiere usar) : No Subjective: * Chief Complaints: * 1 . F/u. * Medical History: Objective: * Vitals: Assessment: Plan: * Treatment: * * Electronic signature of Yajaira Hope , [id number] on 10/12/2025 at 08:06 AM VIRTUAL ASSISTANT Sign off status: Pending * Provider: Andrei Hope Date: 0 01/14/2025 Generated for Nini rainey/Patrick/eTransmitting on: 12/12/2024 08:06 AM VIRTUAL ASSISTANT
--- OUTSIDE RECORDS SUMMARY | 2025-01-21 04:00 | XMS_ITS ---
Author Organization [facility] Address [address] [place] [address] Care Team Providers Care Oiler And Greaser Name Role Phone Arnol Hope Primary Care Provider REASON FOR VISIT r/s from 01/14; Social History Sex Assigned At : Social History Observation Description Sex Assigned At Female Encounters Encounter Location Date Provider Diagnosis [address] [place] [address] 01/21/2025 Arnol Hope Plan Of Treatment No Information Progress Notes * Elizabeth MUNOZDOB:1980 (45 yo F)Acc No.[id number]:01/21/2025 UNLOCKED PROGRESS NOTE Progress Notes Patient: Elizabeth WEEMS Provider: Andrei Hope :1980 A ge:44 Y S ex:Female Date:01/21/2025 Address:[address] [place] Structured Data:Is there a n michell you would prefer we call you? (Nombre que prefiere usar) : No Subjective: * Chief Complaints: * 1 . R/s from 01/14;. * Medical History: Objective: * Vitals: Assessment: Plan: * Treatment: * * Electronic signature of Yajaira Hope , [id number] on 10/12/2025 at 08:06 AM PEST CONTROL PILOT Sign off status: Pending * Provider: Andrei Hope Date: 0 01/21/2025 Generated for Nini rainey/Patrick/eTransmitting on: 12/12/2024 08:06 AM PEST CONTROL PILOT
[2025-10-12 08:05] VITALS: BP 149/93; PULSE 110; RESP 20; TEMP 36.8; O2SAT 100
--- OUTSIDE RECORDS SUMMARY | 2025-10-12 08:06 | XMS_ITS | Patient Health Record ---
Author Organization [facility] Address [address] [place] [address] Care Team Providers Care Architectural Model Maker Name Role Phone Arnol Hope Primary Care Provider [phone] Allergies No Known Allergies Results Component Value Reference Range Notes HIV Screen *HIV 1, 2 Ab, p24 Ag ([id number]) Reviewed date:01/09/2025 09:04:46 AM Interpretation: Performing Lab:[facility], Phone - [phone], Director - [facility] Notes/Report: HIV Ab/p24 Ag Screen Non Reactive Non Reactive HIV-1/HIV-2 antibodies and HIV-1 p24 antigen were NOT detected. There is no laboratory evidence of HIV infection. HIV Negative Hepatitis C Virus Antibody w /Rflx to Quantitative Real-time PCR ([id number]) Reviewed date:01/09/2025 09:04:01 AM Interpretation: Performing Lab:[facility], Phone - [phone], Director - [facility] Notes/Report: HCV Ab Non Reactive Non Reactive Interpretation: Not infected with HCV unless early or acute infection is suspected (which may be delayed in an immunocompromised individual), or other evidence exists to indicate HCV infection. QuantiFERON-TB Gold Plus ([id number]) Reviewed date:01/09/2025 09:03:43 AM Interpretation: Performing Lab[facility], Phone - [phone], Director - [facility] Notes/Report: QuantiFERON Incubation Incubation performed. QuantiFERON-TB Gold [...] Mitogen Value >10.00 CBC With Differential/Platel et* Reviewed date:01/09/2025 08:58:29 AM Interpretation: Performing Lab:[email or web address] [place], [address] [facility], [place], Phone - [phone], Director - [place] Notes/Report: WBC 5.9 3.4-10.8 [...] (Abs) 0.0 0.0-0.1 x10E3/uL Iron and TIBC* Reviewed date:01/09/2025 08:58:05 AM Interpretation: Performing Lab:[facility], Phone - [phone], Director - [facility] Notes/Report: Iron Bind.Cap.(TIBC) 456 250-450 ug/dL UIBC 403 131-425 ug/dL Iron 53 27-159 ug/dL Iron Saturation 12 15-55 % Lipid Panel* Reviewed date:01/09/2025 08:57:53 AM Interpretation: Performing Lab:[facility] [address], Phone - [phone], Director - [facility] Notes/Report: Cholesterol, Total 217 100-199 mg/dL Triglycerides 78 0-149 mg/dL HDL Cholesterol 42 >39 mg/dL VLDL Cholesterol Gabriel 14 5-40 mg/dL LDL Chol Calc (NIH) 161 0-99 mg/dL CMP 14 Comprehensive Metabol ic Panel* Reviewed date:01/09/2025 08:57:25 AM Interpretation: Performing Lab:[facility] [address], Phone - [phone], Director - [facility] Notes/Report: Glucose 79 70-99 mg/dL BUN 6 [...] ALT (SGPT) 9 0-32 IU/L Hemoglobin A1c* Reviewed date:01/09/2025 08:57:05 AM Interpretation: Performing Lab:[facility] [address], [place], Phone - [phone], Director - [facility] Notes/Report: Hemoglobin A1c 6.8 4.8-5.6 % . Prediabetes: 5.7 - 6.4 Diabetes: >6.4 Glycemic control for adults with diabetes: <7.0 Hemoglobin A1c CLIA Waived Reviewed date:01/22/2025 10:21:25 AM Interpretation: Performing Lab: Notes/Report: Hemoglobin A1c 6.7 4.0 - 6.4 % Reason For Referral No Information Medications Medication SIG (Take, Route, Frequency, Duration) Notes Start Date End Date Status metFORMIN HCl ER 500 MG 2 tablet with ev ening meal Orally Once a day; Duration: 90 days 01/22/2025 Active Senna 8.6 MG 2 tablets Orally twice daily As needed constipation 01/31/2024 Active Rosuvastatin Calcium 10 MG 1 tablet Oral ly Once a day; Duration: 90 days Active Iron (Ferrous Sulfate) 325 (65 Fe) MG 1 tablet Orally daily; Duration: 30 days take with water only at least one hour before eating 10/25/2023 Active Immunizations Vaccine Route Administration Date Status Comme nts Tdap IM Intramuscular 10/15/2024 Administered Social History Tobacco Use: Social History Observation Description Date Details (start date - stop date) Current Smoker NA - NA Sex Assigned At : Social History Observation Description Sex Assigned At Female Tobacco Control (Standard) Question Answer Notes How often do you smoke cigarettes? Every day How many cigarettes a day do you smoke? 6-10 How soon after you wake up d o you smoke your first cigarette? 6-30 minutes Are you interested in quitting? Not ready to ingris t Tobacco use: Current smoker Additional Findings: Tobacco user Light cigarett e smoker (1-9 cigs/day) Problems Problem Type SNOMED Code ICD Code Onset Dates Problem Status W/U Status Risk Notes Problem Information temporarily unavailable Hyperlipidemia (E78.5) 3 Active confirmed Problem Information temporarily unavailable Iron deficiency anemia (D50.9) 3 Active confirmed Problem Information temporarily unavailable Constipation (K59.00) Active confirmed Problem Information temporarily unavailable Diabetes mellitus (E11.9) 3 Active confirmed Problem Information temporarily unavailable Menorrhagia (N92.0) Active confirmed Problem Information temporarily unavailable Carpal tunnel syndrome on both sides (G56.03) 3 Active confirmed Vital Signs Heart Rate 83 /min 01/22/2025 Respiratory Rate 16 /min 01/22/2025 Oximetry 95 % 01/22/2025 Blood pressure diastolic 80 mm Hg 01/22/2025 Height 66 in 01/22/2025 Blood pressure systolic 116 mm Hg 01/22/2025 Weight 275.8 lbs 01/22/2025 BMI 44.51 kg/m2 01/22/2025 Encounters Encounter Location Date Provider Diagnosis [address] [place] [address] 10/15/2024 Arnol Hope Diabetes mellitus E1 1.9 ; Iron deficiency anemia D50.9 ; Hyperlipidemia E78.5 and Exposure to potential infection Z20.[address] [place] [address] 01/22/2025 Arnol Hope Diabetes mellitus E1 1.9 ; Hyperlipidemia E78.5 and Breast cancer screening by mammogram Z12.31 Assessments Encounter Date Diagnosis (ICD Code) Assessment Notes Treatment Notes Treatment Clinical Notes Section Notes 01/22/2025 Diabetes mellitus (ICD-10 - E11.9) 10/15/2024 Iron deficiency anemia (ICD-10 - D50.9) 10/15/2024 Diabetes mellitus (ICD-10 - E11.9) 01/22/2025 Hyperlipidemia (ICD-10 - E78.5) 10/15/2024 Hyperlipidemia (ICD-10 - E78.5) 01/22/2025 Breast cancer screening by mammogram (ICD-10 - Z12.31) 10/15/2024 Exposure to potential infection (ICD-10 - Z20.9) Plan Of Treatment Future Test Test Name Order Date Mammogram Breast - Bilateral Screening with ABUS, diagnostic mammogram/ultrasound, and/or biopsy as clinically indicated 01/22/2025 Insurance Providers Payer Name Payer Address Payer Phone Subscriber Number Group Number Insured Name Patient Relationship to Insured Coverage Start Date Coverage End Date [facility] [address] [place] [address] [id number] 3 Elizabeth Munoz Self - patient is the insured 3 5 Medical (General) History Surgical History Surgery Date(Month/Year) Hospitalization History Reason Date(Month/Year) 3 natural child births
--- NOTE | 2025-10-12 08:28 | ED.BACK ---
HPI - Back Pain/Injury General Chief Complaint: Back Pain/Injury Stated Complaint: lower back pain Time Seen by Provider: 10/12/25 08:15 Source: patient and RN notes reviewed Mode of arrival: ambulatory Limitations: no limitations History of Present Illness HPI Narrative: 45-year-old female presents to the [facility] complaining of low back pain it started last night. Patient said she woke up with symptoms after taking a nap on the couch. Patient denies any falls or injuries. Patient reports ring pain down her legs when she is sitting. Patient says the pain is worse with movement or when she is sitting. Patient reports a history of herniated disc to her lower back but never had surgery for it. Patient denies any saddle anesthesia, leg weakness, loss of bowel or bladder function, fevers, body aches, any other symptoms. Has not taken anything for pain. Patient reports a history of high blood pressure and diabetes with is not taking medications for it. Related Data Allergies Allergy/AdvReac Type Severity Reaction Status Date / Time No Known Allergies Allergy Verified 10/12/25 08:11 Review of Systems Review of Systems: CONSTITUTIONAL: Denies fever, chills, or sweats. EYES: Denies visual changes, redness, or discharge. ENT: Denies rhinorrhea, congestion, sore throat, or otalgia. CARDIOVASCULAR: Denies chest pain, palpitations, or edema. RESPIRATORY: Denies cough or dyspnea. GASTROINTESTINAL: Denies abdominal pain, nausea, vomiting, or diarrhea. GENITOURINARY: Denies dysuria or hematuria. SKIN: Denies rash or itching. MUSCULOSKELETAL: Positive for back pain. Negative for joint pain, or myalgia. NEUROLOGIC: Denies headache, loss of bowel or bladder function, saddle anesthesia, numbness, or weakness. PSYCHIATRIC: Denies anxiety or depression. All other systems reviewed are negative, except as documented in HPI. [facility] Past Medical History Medical History Ear drum perforation Bronchitis Ear infection Social History Social History Smoking status: Current every day smoker Tobacco type: cigarettes Alcohol intake: current Alcohol use details: social Substance use type: does not use Living arrangements: with family Gender identity (if verbalized by the patient): Female Comments At the time of my signature, I reviewed and agree with the nursing past medical, surgical, social, and family history. There is no relevant family history pertinent to the patient complaint. Exam Narrative: GENERAL: This is a well-nourished, well-developed adult, in no apparent distress. They are non ill-appearing, nontoxic appearing. Patient is standing the room tearful. HEAD: normocephalic, atraumatic. EYES: Sclera clear/white. Conjunctiva normal. Vision is grossly intact. Extraocular movements intact EARS: External ears normal, Hearing grossly intact. NOSE: External nose normal THROAT: Mucous membranes moist, NECK: Neck supple, CARDIOVASCULAR: Regular rate and rhythm RESPIRATORY: Respiratory rate normal, respiratory effort nonlabored, no respiratory distress SKIN: warm, Dry, intact with no suspicious lesions or rash, good texture and turgor. NEURO: awake, alert, and oriented to person, place and time. There were no obvious focal neurologic abnormalities. EXTREMITIES: No joint tenderness, effusion, or edema noted. BACK: Lumbar backend python developer to palpation throughout. No deformity. No CVA tenderness. Course Course Emergency Course: Portions of this record may have been created with voice recognition software Level of Care: Express Care Visit Vital Signs Vital signs: Vital Signs Temperature 98.2 F 10/12/25 08:05 Pulse Rate 110 H 10/12/25 08:05 Respiratory Rate 20 10/12/25 08:05 Blood Pressure 149/93 H 10/12/25 08:05 Pulse Oximetry 100 10/12/25 08:05 Oxygen Delivery Room Air 10/12/25 08:05 Temperature 98.2 F 10/12/25 08:05 Pulse Rate 110 H 10/12/25 08:05 Respiratory Rate 20 10/12/25 08:05 Blood Pressure 149/93 H 10/12/25 08:05 Pulse Oximetry 100 10/12/25 08:05 Oxygen Delivery Room Air 10/12/25 08:05 Reviewed MDM - Back Pain/Injury MDM Narrative Medical decision making narrative: Symptoms appear to be consistent with sciatica. Low back pain. No injury. No cauda equina symptoms. Patient given a shot of Solu-Medrol for pain. Will send patient home on prednisone along with muscle relaxers. Discussed pain management patient. Advised patient to follow-up with her PCP about her back pain. Discussed physical exam findings. Advised supportive measures and signs/symptoms to go to the ER. Pt is appropriate for outpt treatment and f/u. Differential Diagnosis Differential diagnosis: Likely lumbar radiculopathy, sciatica and strain of lumbar region Critical Care Time Critical Care Time Critical Care Time: No Discharge Plan Discharge Clinical Impression: Low back pain Qualifiers: Chronicity: acute Back pain laterality: bilateral Sciatica presence: with sciatica Sciatica laterality: bilateral sciatica Qualified Code(s): M54.42 - Lumbago with sciatica, left side Patient Disposition: Home Condition: Stable Instructions: Low Back Strain (ED), Lower Back Exercises (ED) Additional Instructions: Take the muscle relaxer as directed. Do not drive or operate heavy machine, or work while taking the medication as it can make you drowsy. You may take ibuprofen 600 mg to 800 mg every 6-8 hours. Do not exceed more than 800 mg of ibuprofen per dose. Do not exceed more than 3200 mg ibuprofen in a day. You may take up to 1000 mg Tylenol every 6-8 hours. Do not exceed 1000 mg per dose, do exceed more than 4000 mg of Tylenol in a day. Your given a shot of Solu-Medrol today. Start your prednisone tomorrow intake as directed. Please follow-up with your primary care provider if pain persist Rest. Avoid pushing, pulling, lifting --running or excessive walking-- or anything that worsens the symptoms You may try stretching your lower back or doing spinal decompression to help with symptoms. Go to the emergency department if you develop any numbness or tingling to your groin, weakness in your legs, or any loss of bowel or bladder function, or any severe uncontrollable pain. Patient Language: Emirati Prescriptions: New prednisone 20 mg tablet 40 mg PO DAILY 4 Days Qty: 8 0RF Rx Instructions: Start on 10/13/25 methocarbamol 750 mg tablet 750 mg PO TID PRN (Reason: muscle spasms) Qty: 12 0RF Follow-up/Referrals: Arnol Hope MD [Primary Care Provider, Hospitalist] Stand Alone Forms: Work/School Release IP Time of Disposition: 08:24
== END 2025-10-12 08:50 | disposition home or self-care (01) ==
PROVIDERS: PCP Internal Medicine
DX: M54.42 Lumbago with sciatica, left side (principal); F17.210 Nicotine dependence, cigarettes, uncomplicated
CPT/HCPCS: 96372; 99213; G0463; J2919